=== PATIENT | female | born 1980 | race Hispanic/Latino ===

== ENCOUNTER 2019-03-04 23:42 | Emergency (ER) | payer SELFPAY ==
[~2019-03-04] VITALS: Ht 157.5 cm; Wt 126.1 kg
--- OUTSIDE RECORDS SUMMARY | 2019-03-04 23:44 | XMS REPORT | Continuity of Care Document ---
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 Active [facility] 1 ML methylprednisolone acetate 80 MG/ML Injection [Depo-Medrol] Depo-Medrol 80 mg/mL suspension for injection Take 1 mL every day by injection route. Active [facility] Fluticasone propionate 0.05 MG/ACTUAT Metered Dose Nasal [place] fluticasone 50 mcg/actuation nasal spray,suspension [place] 1 spray twice a day by intranasal route. Active [facility] Hemocyte-Plus 106 mg iron-1 mg capsule Hemocyte-Plus 106 mg iron-1 mg capsule Active [facility] Ketorolac Tromethamine 10 MG Oral Tablet ketorolac 10 mg tablet Active [facility] Lidocaine Hydrochloride 20 MG/ML Mucous Membrane Topical Solution Lidocaine Viscous 2 % mucosal solution Take 15 mL every 3 hours by oral route. Active [facility] Lorazepam 1 MG Oral Tablet lorazepam 1 mg tablet Active [facility] Allergies, Adverse Reactions, Alerts No Known Medication Allergies Immunizations No Data Provided for This Section Results Order Name Results Value Reference Range Date Interpretation Comments Source RESULT negative 06/28/2018 [facility] SWAB LOCATION Left and Right tonsillar pillars 06/28/2018 [facility] Pathology Reports No Data Provided for This Section Diagnostic Reports No Data Provided for This Section Consultation Notes No Data Provided for This Section Discharge Summaries No Data Provided for This Section History and Physicals No Data Provided for This Section Vital Signs Vital Sign Value Date Comments Source Diastolic (mm Hg) 78 06/28/2018 [facility] Height 62 06/28/2018 [facility] Systolic (mm Hg) 118 06/28/2018 [facility] Weight 270 06/28/2018 [facility] Encounters Location Location Details Encounter Type Encounter Number Reason For Visit Attending Provider ADM Date DC Date Status Source [place] - [facility] - [id number] Fleming, [facility]: [address] [place] [address], Ph. [id number] Bairon Fleming 06/28/2018 [facility] Procedures No Data Provided for This Section Assessment and Plan No Data Provided for This Section Plan of Care No Data Provided for This Section Social History Social History Date Source Smoking Status Former Smoker 11/11/2012 [facility] Family History No Data Provided for This Section Advance Directives No Data Provided for This Section Functional Status No Data Provided for This Section
--- OUTSIDE RECORDS SUMMARY | 2019-03-04 23:45 | XMS REPORT | Encounter Summary ---
Author Organization Unknown Address [address] [place] [address] Phone [phone] Reason for Visit Medical Complaint Instructions 1. Sore throat symptom sore throat: care instructions rapid strep group A, throat Lidocaine Viscous 2 % mucosal solution 2. Rhinitis fluticasone 50 mcg/actuation nasal spray,suspension rhinitis: care instructions upper respiratory infection (cold): care instructions benzonatate 200 mg capsule 3. Body mass index 40+ - severely obese body mass index: care instructions learning about healthy weight Discussion Note: None recorded. Plan of Care Patient Instructions Rhinitis is swelling and irritation in the nose. Allergies and infections are often the cause. Your nose may run or feel stuffy. Other symptoms are itchy and sore eyes, ears, throat, and mouth. If allergies are the cause, your doctor may do tests to find out what you are allergic to. You may be able to stop symptoms if you avoid the things that cause them. Your doctor may suggest or prescribe medicine to ease your symptoms. Follow-up care is a dominguez part of your treatment and safety. Be sure to make and go to all appointments, and call your doctor if you are having problems. It's also a good idea to know your test results and keep a list of the medicines you take. How can you care for yourself at home? If your rhinitis is caused by allergies, try to find out what sets off (triggers) your symptoms. Take steps to avoid these triggers. Avoid yard work. It can stir up both pollen and mold. Do not smoke or allow others to smoke around you. If you need help quitting, talk to your doctor about stop-smoking programs and medicines. These can increase your chances of quitting for good. Do not use aerosol sprays, cleaning products, or perfumes. If pollen is one of your triggers, close your house and car windows during blooming season. Clean your house often to control dust. Keep pets outside. If your doctor recommends coab-xet-raxhbvm medicines to relieve symptoms, take your medicines exactly as prescribed. Call your doctor if you think you are having a problem with your medicine. Use saline (saltwater) nasal washes to help keep your nasal passages open and wash out mucus and bacteria. You can buy saline nose drops at a grocery store or drugstore. Or you can make your own at home by adding 1 teaspoon of salt and 1 teaspoon of baking soda to 2 cups of distilled water. If you make your own, fill a bulb syringe with the solution, insert the tip into your nostril, and squeeze gently. Blow your nose. When should you call for help? Call your doctor now or seek immediate medical care if: You are having trouble breathing. Watch closely for changes in your health, and be sure to contact your doctor if: Mucus from your nose gets thicker (like pus) or has new blood in it. You have new or worse symptoms. You do not get better as expected. Reminders Provider Appointments None recorded. Lab Rapid Strep Group a, Throat 06/28/2018 [facility] Referral None recorded. Procedures None recorded. Surgeries None recorded. Imaging None recorded. Medications Name Start Date benzonatate 200 mg capsule Take 1 capsule 3 times a day by oral route for 7 days. Depo-Medrol 80 mg/mL suspension for injection Take 1 mL every day by injection route. fluticasone 50 mcg/actuation nasal spray,suspension [place] 1 spray twice a day by intranasal route. Hemocyte-Plus 106 mg iron-1 mg capsule ketorolac 10 mg tablet Lidocaine Viscous 2 % mucosal solution Take 15 mL every 3 hours by oral route. lorazepam 1 mg tablet Medications Administered None recorded. Vitals Height Weight BMI Blood Pressure 5 ft 2 in 270 lbs 49.4 kg/m2 118/78 mm[Hg] Lab Results Date Name Specimen Result Interpretation Description Value Range Status Address Rapid Strep Group a, Throat Result negative [facility]: [address] [place] [address] Swab Location Left and Right tonsillar pillars [facility]: [address] [place] [address] Allergies Code Code System Name Reaction Severity Status Onset NKDA Problems No Known Problems Procedures None recorded. Vaccine List None recorded. Social History Smoking Status Former Smoker Past Encounters 06/28/2018 Sore Throat Symptom; Rhinitis; Body Mass Index 40+ - Severely Obese [facility]: [address] [facility], [place] [address], Ph. History of Present Illness Ijkwk-Aqbqpyzjeo-Lzczdyi Reported By: Patient HPI: Location: head/sinuses. Quality: nasal/sinus congestion, dry cough. Duration: 2days. Severity: mild. Context: no sick contacts, no foreign travel, non- smoker, allergies. Modifying factors: OTC medication. Associated Symptoms: no sputum production, no shortness of breath, no wheezing, no change in number of pillows needed to sleep at night, no sweats, no significant weight gain, no significant weight loss, no vomiting, no diarrhea, no rash, no nausea, no fever, no muscle aches, no headache, morning cough, sore throat Review of Systems:ROS as noted in the HPI Review of Systems Basic Reported By: Patient Physical Exam Adult Basic, Adult Female Complete Reported By: Patient Constitutional: General Appearance: obese. Level of Distress: NAD. Ambulation: ambulating normally Psychiatric: Mental Status: active and alert. Orientation: to time, to place, to person Dar-Pmpe-Afeur-Throat: Ears: no lesions on external ear, no outer ear tenderness, EACs clear, TMs clear. Hearing: no hearing loss. Nose: no lesions on external nose, nares patent, no septal deviation, nasal passages clear, no sinus tenderness, no nasal discharge. Lips, Teeth, and Gums: no mouth or lip ulcers, no bleeding gums, normal dentition. Oropharynx: moist mucous membranes, no erythema, no exudates, tonsils not enlarged Lungs: Respiratory effort: no dyspnea, no tachypnea, no use of accessory muscles, no intercostal retractions. Auscultation: breath sounds normal Cardiovascular: Heart Auscultation: RRR, no murmurs
[2019-03-05 00:38] LABS: BASOPHILS % 0.6 % (0.0-1.0); EOSINOPHILS # (AUTO) 0.1 (0.0-0.4); EOSINOPHILS % 1.4 % (0.0-6.0); HEMATOCRIT 27.3 % (34.2-44.1); HEMOGLOBIN 8.2 g/dL (12.0-16.0); LYMPHOCYTES # (AUTO) 1.8 (1.0-3.2); LYMPHOCYTES % 36.3 % (18.0-39.1); MEAN CORPUSCULAR HEMOGLOBIN 19.9 pg (28-32); MEAN CORPUSCULAR VOLUME 66.1 fL (81-99); MONOCYTES # (AUTO) 0.5 (0.2-0.8); NEUTROPHILS # (AUTO) 2.6 (2.1-6.9); NEUTROPHILS % 52.5 % (38.7-80.0); PLATELET COUNT 370 x10e3/uL (140-360); RED BLOOD COUNT 4.13 x10e6/uL (3.6-5.1); RED CELL DISTRIBUTION WIDTH 17.3 % (11.7-14.4)
[2019-03-05 01:06] LABS: ALANINE AMINOTRANSFERASE 12 IU/L (0-55); ALBUMIN 3.5 g/dL (3.5-5.0); ALBUMIN/GLOBULIN RATIO 1.1 (0.8-2.0); ALKALINE PHOSPHATASE 57 IU/L (40-150); BLOOD UREA NITROGEN 17 mg/dL (7-26); BUN/CREATININE RATIO 23 (6-25); CALCIUM 9.3 mg/dL (8.4-10.2); CARBON DIOXIDE 21 mmol/L (22-29); CHLORIDE 109 mmol/L (98-107); CREATINE KINASE 61 IU/L (29-168); CREATININE, SERUM 0.75 mg/dL (0.57-1.11); EST GLOMERULAR FILTRATION RATE > 60 ML/MIN (60-); GLUCOSE 106 mg/dL (74-118); SODIUM 141 mmol/L (136-145)
[2019-03-05 01:15] LABS: CREATINE KINASE MB < 1.00 ng/mL (0-4.3)
--- NOTE | 2019-03-05 01:22 | Diagnostic Imaging Report ---
EXAMINATION: CHEST SINGLE (PORTABLE) COMPARISON: None INDICATION: Generalized chest pressure ^CHEST PRESSURE ^[id number] ^0100 DISCUSSION: Frontal view of the chest obtained at 0105 hours. HEART AND MEDIASTINUM: The cardiomediastinal silhouette is unremarkable. Linear radiodensity over the left clavicular head is likely an artifact on the cassette. LINES: None. LUNGS: The lungs are well inflated and clear. No pneumonia or pulmonary edema. PLEURA: No pleural effusion or pneumothorax. BONES AND SOFT TISSUES: No focal osseous lesion. The soft tissues are normal. IMPRESSION: No acute cardiopulmonary disease. Signed by: Dr. Christie Davalos MD on 03/05/2019 1:18 AM
== END 2019-03-05 01:55 | disposition home or self-care (01) ==
LOC: FSED 23:42 → ER 03-05 01:55
DX: R07.89 Other chest pain (principal); F41.1 Generalized anxiety disorder; Z98.84 Bariatric surgery status
CPT/HCPCS: 36415; 71045; 80053; 82550; 82553; 84484; 85025; 93005; 99284

== ENCOUNTER 2019-08-15 12:23 | Emergency (ER) | payer OTHER ==
[~2019-08-15] VITALS: Ht 157.5 cm; Wt 126.1 kg
--- OUTSIDE RECORDS SUMMARY | 2019-08-15 12:25 | XMS REPORT ---
Author Author [facility] Address Unknown Phone Unavailable Care Team Providers Care Accounting Representative Name Role Phone Vangie MARIA Unavailable Unavailable Payers Payer Name Policy Type Policy Number Effective Date Expiration Date Problems This patient has no known problems. Allergies, Adverse Reactions, Alerts Allergy Name Allergy Type Status Severity Reaction(s) Onset Date Inactive Date Treating Clinician Comments No Known Allergies DA Active U 2015-04-09 00:00:00 Medications This patient has no known medications. Results Test Description Test Time Test Comments Text Results Atomic Results Result Comments BASIC METABOLIC PANEL 2019-04-09 02:22:00 SODIUM (test code=NA) 140 mmol/L 135-148 POTASSIUM (test code=K) 3.9 mmol/L 3.5-5.1 CHLORIDE (test code=CL) 104 mmol/L 101-109 CARBON DIOXIDE (test code=CO2) 26.1 mmol/L 21-32 ANION GAP (test code=GAP) 14 mmol/L 10-20 GLUCOSE (test code=GLU) 96 mg/dL 74-106 BLOOD UREA NITROGEN (test code=BUN) 19 mg/dL 3-21 GLOMERULAR FILTRATION RATE (test code=GFR) > 60 mL/min >=60 Estimated GFR by using Modified MDRD formula.Chronic kidney disease is defined as either kidney damageor GFR <60 mL/min/1.73 m2 for >3 months. CREATININE (test code=CREAT) 0.78 mg/dL 0.55-1.3 BUN/CREATININE RATIO (test code=BUN/CREA) 24.4 10-20 CALCIUM (test code=CA) 8.2 mg/dL 8.4-10.2 HCG SERUM [id number] 02:22:00* Test Item Value Reference Range Comments HCG SERUM QUAL (test code=HCGQL) NEGATIVE NEGATIVE This HCGQL test is NOT applicable for MALE patients.Check with nurse about probable order error.If Tumor Marker Test needed, nurse should order test "HCGTU"(Test #[id number]) [id number] 02:22:00* Test Item Value Reference Range Comments TROPONIN-I (test code=TROPI) <0.015 ng/mL 0.00-0.056 - XR CHEST 1 [id number] 02:17:00 Name: BLANCHE GARCIA [facility] : 1980 Age/S:38 /F [address] [facility] Unit#:[id number] Loc: [place] [address] Phys: Demetrio Redmond MD Dis Date: PHONE #: [phone] Status: REG ER FAX #: [phone] Exam Date: 04/09/2019 Reason: CHEST PAIN EXAMS: CPT CODE: [id number] XR CHEST 1 V 61980 DICTATION LOCATION: [facility] HISTORY: Female, 38 years of age with chest pain, left-sided numbness EXAM: CHEST X- RAY, ONE VIEW COMPARISON: None COMMENT: Frontal view of the chest is provided. No focal infiltrate, consolidation, mass lesion, or effusion is seen. Cardiac silhouette is within normal limits. No acute bony abnormalities. IMPRESSION: No acute infiltrate or effusion. at 0217 Reported and signed by: Shira Brito MD CC: Murtaza Baker; Demetrio Redmond MD; Randolph King Technologist: GUI AYON RT(R),RDMS,CT Trnscrpt Data: 04/09/2019 ([id number]) [email or web address] Orig Print D/T: S: 04/09/2019 ([id number]) PAGE 1 Signed Report BASIC METABOLIC [id number] 02:15:00* Test Item Value Reference Range Comments SODIUM (test code=NA) 140 mmol/L 135-148 POTASSIUM (test code=K) 3.9 mmol/L 3.5-5.1 CHLORIDE (test code=CL) 104 mmol/L 101-109 CARBON DIOXIDE (test code=CO2) 26.1 mmol/L 21-32 ANION GAP (test code=GAP) 14 mmol/L 10-20 GLUCOSE (test code=GLU) 96 mg/dL 74-106 BLOOD UREA NITROGEN (test code=BUN) 19 mg/dL 3-21 GLOMERULAR FILTRATION RATE (test code=GFR) > 60 mL/min >=60 Estimated GFR by using Modified MDRD formula.Chronic kidney disease is defined as either kidney damageor GFR <60 mL/min/1.73 m2 for >3 months. CREATININE (test code=CREAT) 0.78 mg/dL 0.55-1.3 BUN/CREATININE RATIO (test code=BUN/CREA) 24.4 10-20 CALCIUM (test code=CA) 8.2 mg/dL 8.4-10.2 HCG SERUM [id number] 02:15:00* Test Item Value Reference Range Comments HCG SERUM QUAL (test code=HCGQL) NEGATIVE NEGATIVE This HCGQL test is NOT applicable for MALE patients.Check with nurse about probable order error.If Tumor Marker Test needed, nurse should order test "HCGTU"(Test #[id number]) [id number] 02:15:00* Test Item Value Reference Range Comments TROPONIN-I (test code=TROPI) ng/mL 0-0.045 BASIC METABOLIC [id number] 02:14:00* Test Item Value Reference Range Comments SODIUM (test code=NA) 140 mmol/L 135-148 POTASSIUM (test code=K) 3.9 mmol/L 3.5-5.1 CHLORIDE (test code=CL) 104 mmol/L 101-109 CARBON DIOXIDE (test code=CO2) 26.1 mmol/L 21-32 ANION GAP (test code=GAP) 14 mmol/L 10-20 GLUCOSE (test code=GLU) 96 mg/dL 74-106 BLOOD UREA NITROGEN (test code=BUN) 19 mg/dL 3-21 GLOMERULAR FILTRATION RATE (test code=GFR) > 60 mL/min >=60 Estimated GFR by using Modified MDRD formula.Chronic kidney disease is defined as either kidney damageor GFR <60 mL/min/1.73 m2 for >3 months. CREATININE (test code=CREAT) 0.78 mg/dL 0.55-1.3 BUN/CREATININE RATIO (test code=BUN/CREA) 24.4 10-20 CALCIUM (test code=CA) 8.2 mg/dL 8.4-10.2 HCG SERUM [id number] 02:14:00* Test Item Value Reference Range Comments HCG SERUM QUAL (test code=HCGQL) NEGATIVE [id number] 02:14:00* Test Item Value Reference Range Comments TROPONIN-I (test code=TROPI) ng/mL 0-0.045 CBC W/O [id number] 02:02:00* Test Item Value Reference Range Comments WHITE BLOOD CELL (test code=WBC) 5.8 K/mm3 4.5-12.5 RED BLOOD CELL (test code=RBC) 4.36 mill/mm3 3.7-5.2 HEMOGLOBIN (test code=HGB) 8.5 gram/dL 11.5-15.5 HEMATOCRIT (test code=HCT) 28.9 % 36.0-46.0 MEAN CELL VOLUME (test code=MCV) 66.3 fL 80-98 MEAN CELL HGB (test code=MCH) 19.5 picogram 27.0-33.0 MEAN CELL HGB CONCETRATION (test code=MCHC) 29.4 gram/dL 33.0-36.0 RED CELL DISTRIBUTION WIDTH (test code=RDW) 17.8 % 11.6-16.2 RED CELL DISTRIBUTION WIDTH SD (test code=RDW-SD) 42.2 fL 37.0-51.0 PLATELET COUNT (test code=PLT) 381 K/mm3 150-450 MEAN PLATELET VOLUME (test code=MPV) 9.4 fL 6.7-11.0 CHEST SINGLE (PORTABLE)2019-03-05 01:17:00 [facility] [address] [address] Patient Name: BLANCHE GARCIA MR #: [id number] : 1980 Age/Sex: 38/F Req #: [id number] Adm Physician: Ordered by: JACQUE MARIA MD Report #: [id number] Location: ER Room/Bed: Procedure: [id number] DX/CHEST SINGLE (PORTABLE) Exam Date: 03/05/19 Exam Time: 0100 REPORT STATUS: Signed EXAMINATION: CHEST SINGLE (PORTABLE) COMPARISON: None INDICATION: Generalized chest pressure CHEST PRESSURE [id number] 0100 DISCU SSION: Frontal view of the chest obtained at 0105 hours. HEART AND MEDIAS TINUM: The cardiomediastinal silhouette is unremarkable. Linear radiodensity over the left clavicular head is likely an artifact on the cassette. LI ELLE: None. LUNGS: The lungs are well inflated and clear. No pneumonia or pulmonary edema. PLEURA: No pleural effusion or pneumothorax. BONES A ND SOFT TISSUES: No focal osseous lesion. The soft tissues are normal. IMPRESSION: No acute cardiopulmonary disease. Signed by: Dr. Christie Davalos MD on 03/05/2019 1:18 AM Dictated By: CHRISTIE DAVALOS MD Electro nically Signed By: CHRISTIE DAVALOS MD on 03/05/19117 Transcribed By: JOSIE Malloy on 03/05/19117 COPY TO: JACQUE MARIA MD
[2019-08-15 13:18] LABS: BASOPHILS % 0.6 % (0.0-1.0); EOSINOPHILS % 0.9 % (0.0-6.0); HEMATOCRIT 33.4 % (34.2-44.1); HEMOGLOBIN 9.8 g/dL (12.0-16.0); LYMPHOCYTES # (AUTO) 1.3 (1.0-3.2); MEAN CORPUSCULAR HEMOGLOBIN 19.9 pg (28-32); MEAN CORPUSCULAR HGB CONC 29.3 g/dL (31-35); MEAN CORPUSCULAR VOLUME 67.7 fL (81-99); MONOCYTES # (AUTO) 0.3 (0.2-0.8); MONOCYTES % 9.2 % (4.4-11.3); NEUTROPHILS # (AUTO) 1.9 (2.1-6.9); NEUTROPHILS % 53.3 % (38.7-80.0); PLATELET COUNT 461 x10e3/uL (140-360); RED BLOOD COUNT 4.93 x10e6/uL (3.6-5.1); RED CELL DISTRIBUTION WIDTH 19.1 % (11.7-14.4)
[2019-08-15 13:30] LABS: CLARITY,URINE SL CLOUDY (CLEAR); COLOR,URINE YELLOW (YELLOW)
[2019-08-15 13:31] LABS: LEUKOCYTE ESTERASE ,URINE LARGE (NEGATIVE)
[2019-08-15 13:32] LABS: BILIRUBIN,URINE NEGATIVE (NEGATIVE); KETONES,URINE NEGATIVE (NEGATIVE); NITRITE,URINE NEGATIVE (NEGATIVE); PROTEIN,URINE DIPSTICK NEGATIVE (NEGATIVE); URINE UROBILINOGEN 0.2 mg/dL (0.2 - 1)
[2019-08-15 13:38] LABS: ALANINE AMINOTRANSFERASE 12 IU/L (0-55); ALBUMIN 4.2 g/dL (3.5-5.0); ALBUMIN/GLOBULIN RATIO 1.1 (0.8-2.0); ALKALINE PHOSPHATASE 74 IU/L (40-150); ANION GAP 12.6 mmol/L (8-16); BLOOD UREA NITROGEN 10 mg/dL (7-26); BUN/CREATININE RATIO 13 (6-25); CALCIUM 9.7 mg/dL (8.4-10.2); CARBON DIOXIDE 24 mmol/L (22-29); CHLORIDE 108 mmol/L (98-107); CREATINE KINASE 44 IU/L (29-168); CREATININE, SERUM 0.79 mg/dL (0.57-1.11); EST GLOMERULAR FILTRATION RATE > 60 ML/MIN (60-); GLUCOSE 94 mg/dL (74-118); POTASSIUM 3.6 mmol/L (3.5-5.1); SODIUM 141 mmol/L (136-145)
--- NOTE | 2019-08-15 14:04 | Diagnostic Imaging Report ---
EXAMINATION: CHEST 2 VIEWS INDICATION: Pain COMPARISON: None FINDINGS: PA and lateral views TUBES and LINES: None. LUNGS: Lungs are well inflated. Lungs are clear. There is no evidence of pneumonia or pulmonary edema. PLEURA: No pleural effusion or pneumothorax. HEART AND MEDIASTINUM: The cardiomediastinal silhouette is unremarkable. BONES AND SOFT TISSUES: No acute osseous lesion. Soft tissues are unremarkable. UPPER ABDOMEN: No free air under the diaphragm. IMPRESSION: No acute thoracic radiographic abnormality. Signed by: Obdulio Pulliam MD on 08/15/2019 2:01 PM
[2019-08-15 14:19] LABS: WBC,URINE (MAN) >50 /HPF (0-5)
[2019-08-15 14:20] LABS: BACTERIA,URINE MODERATE /HPF; EPITHELIAL CELLS,URINE MANY /LPF
[2019-08-15 14:21] LABS: AMORPHOUS SEDIMENT,URINE FEW (FEW)
[2019-08-15 14:41] LABS: PREGNANCY TEST, URINE NEGATIVE (NEGATIVE)
--- NOTE | 2019-08-15 16:52 | Diagnostic Imaging Report ---
EXAM: CT Chest WITH contrast- Pulmonary Embolism Protocol INDICATION: Chest pain COMPARISON: Chest radiograph of the same day TECHNIQUE: Chest was scanned utilizing a multidetector helical scanner from the lung apex through the level of the diaphragm after administration of IV contrast. Thin section reconstructions were obtained with special concentration on the pulmonary arteries. Coronal and sagittal reformations were obtained. Pulmonary embolism protocol was performed. IV CONTRAST: 100 cc of Isovue 370 RADIATION DOSE: Total DLP: 594.8 mGy*cm Dose modulation, iterative reconstruction, and/or weight based adjustment of the mA/kV was utilized to reduce the radiation dose to as low as reasonably achievable. COMPLICATIONS: None FINDINGS: LINES/ TUBES: None. PULMONARY ARTERIES: No filling defect is identified within the pulmonary arteries to the segmental level. The subsegmental pulmonary arteries are not well opacified. Main pulmonary artery measures 2.2 cm in diameter. No evidence of right heart strain. LUNGS AND AIRWAYS: The central airways are patent. No evidence of pneumonia or pulmonary edema. PLEURA: The pleural spaces are clear. HEART AND MEDIASTINUM: The thyroid gland is normal. No mediastinal, hilar or axillary lymphadenopathy. The heart is normal in size.. There is no pericardial effusion. UPPER ABDOMEN: Postoperative findings of partial gastrectomy. No acute upper abdominal findings. BONES: The visualized bony thorax is within normal limits. SOFT TISSUES: Unremarkable. IMPRESSION: No pulmonary embolism. No focal pneumonia or pulmonary edema. Signed by: Javed Vera MD on 08/15/2019 4:49 PM
[2019-08-15 17:03] VITALS: BP 167/94
[2019-08-15] MEDS ORDERED: SODIUM CHLORIDE 0.9% 50ML 50 ML ONE (17:20)
[2019-08-15] MEDS ORDERED: IOPAMIDOL 370 MG/ML 200 ML INFUS..BTL INJ ONE (17:20)
== END 2019-08-15 17:11 | disposition home or self-care (01) ==
LOC: ER 12:23
DX: R07.89 Other chest pain (principal); R10.13 Epigastric pain; R60.9 Edema, unspecified
CPT/HCPCS: 36415; 71046; 71260; 80053; 81001; 81025; 82550; 82553; 83880; 84484; 85025; 85379; 93005; 99284; Q9967